=== PATIENT | female | born 1985 | race African-American/Black ===

== ENCOUNTER 2016-10-20 21:11 | Emergency (ER) | payer MEDICAID ==
[~2016-10-20] VITALS: Ht 170.2 cm; Wt 70.0 kg
[~2016-10-20 21:11] MED LIST: AMOX500C PO
[2016-10-20 21:13] VITALS: BP 121/60; PULSE 86; RESP 18; TEMP 98.1; O2SAT 100
--- NOTE | 2016-10-20 22:34 | PD ---
Physical Exam Date Seen by Provider: Oct 20, 2016 Time Seen by Provider: 22:30 Narrative 31 YOBF C/O N/V/D THIS AM. UNABLE TO KEEP ANYTHING DOWN. DIFFUSE ABD CRAMPING. LMP 1WK. NO F/C, NO COUGH,SOB, OR CP VSS. AWAITING BED PLACEMENT Data Data Last Documented VS Vital Signs Date Time Temp Pulse Resp B/P Pulse Ox O2 Delivery O2 Flow Rate FiO2 10/20/16 21:13 98.1 86 18 121/60 100 Room Air [facility] Medical Record Reviewed: Yes Supervised Visit with JANKI: Yes Rd Maria Oct 20, 2016 22:34
[2016-10-20 23:11] VITALS: RESP 16; O2SAT 98
[2016-10-20] MEDS ORDERED: SODIUM CHLOR 0.9% 1000 ML INJ 1,000 ML IV ONE (23:15)
[2016-10-20] MEDS ORDERED: ONDANSETRON HCL 4 MG/2 ML VIAL IV ONE (23:15)
[2016-10-20 23:35] LABS: AUTOMATED NEUTROPHIL # 6.2 TH/MM3 (1.8-7.7); BASOPHIL % 0.3 % (0.0-2.0); HEMATOCRIT 38.2 % (35.0-46.0); HEMO FLAGS DIFF FINAL; LYMPH % 13.2 % (9.0-44.0); MEAN CELL VOLUME 87.9 FL (80.0-100.0); MEAN CORPUSCULAR HEMOGLOBIN 29.4 PG (27.0-34.0); MEAN CORPUSCULAR HGB CONC 33.5 % (32.0-36.0); NEUT % 80.5 % (16.0-70.0); PLATELET COUNT 258 TH/MM3 (150-450); RED BLOOD COUNT 4.35 MIL/MM3 (4.00-5.30); RED CELL DISTRIBUTION WIDTH 12.5 % (11.6-17.2); WHITE BLOOD COUNT 7.7 TH/MM3 (4.0-11.0)
[2016-10-20] MEDS ORDERED: ZOFR4TAB3 SL (23:35)
[2016-10-20 23:36] LABS: BACTERIA, URINE RARE /hpf; BLOOD, URINE NEG (NEG); COMMENT (UR) CULT NOT INDICATED; CULTURE IF INDICATED CULT NOT INDICATED; GLUCOSE,URINE NEG (NEG); KETONE, URINE NEG (NEG); MUCUS URINE MANY /lpf (OCC); NITRITE,URINE NEG (NEG); PH, URINE 6.5 (5.0-8.5); SQUAMOUS EPITHELIAL CELL URINE 6 /hpf (0-5); URINE COLOR YELLOW (YELLW/STRAW)
--- NOTE | 2016-10-20 23:36 | PD ---
HPI Chief Complaint: GI Complaint Time Seen by Provider: 23:05 Travel History International Travel<30 days: No Contact w/Intl Traveler<30days: No Traveled to known affect area: No History of Present Illness HPI The patient is a 31 year old female who presents to the [facility] emergency department with a history of nausea, vomiting, and diarrhea that began this morning. She reports that she has not been able to keep any liquids down including water. She reports that she's had vomiting too many times to count. She reports having diarrhea approximately 5 times today. She reports that the stool is green to brown in color. She denies having any mucus or blood in her stool. She denies any foreign travel, sick contacts, recent antibiotic use, or camping. She reports having a generalized abdominal cramping prior to having the diarrhea. Otherwise no other focal abdominal pain. The patient denies any recent fevers, cough, congestion, neck pain, chest pain, shortness of breath, urinary symptoms, or neurologic symptoms. LMP: Sometime last month PFSH Past Medical History Narrative Medical The patient's past medical history is reportedly none. Diminished Hearing: No Immunizations Current: Yes Migraines: Yes Influenza Vaccination: No ?: Not LMP: LAST THURSDAY ENDED : 5 Para: 5 Miscarriage: 0 : 0 Past Surgical History Narrative Surgical The patient's past surgical history is reportedly none. Other Surgery: Yes (FACIAL) Social History Alcohol Use: No Tobacco Use: No Substance Use: No (MARIJUANA) Allergies-Medications (Allergen,Severity, Reaction): Coded Allergies: No Known Allergies (Verified , 10/20/16) Reported Meds & Prescriptions Reported Meds & Active Scripts Active Zofran Odt (Ondansetron Odt) 4 Mg Tab 4 Mg SL Q6HR PRN Review of Systems Except as stated in HPI: all other systems reviewed are Neg General / Constitutional: No: Fever Eyes: No: Visual changes HENT: No: Headaches Cardiovascular: No: Chest Pain or Discomfort Respiratory: No: Shortness of Breath Gastrointestinal: Positive: Nausea, Vomiting, Diarrhea, Abdominal Pain, Changes in Bowel Habits, No: Hematochezia, Constipation, Indigestion, Loss of Appetite Genitourinary: No: Dysuria Musculoskeletal: No: Pain Skin: No Rash Neurologic: No: Weakness Psychiatric: No: Depression Endocrine: No: Polydipsia Hematologic/Lymphatic: No: Easy Bruising Physical Exam Narrative General: The patient is a well-developed well-nourished female in no acute distress. Head and Neck exam: Head is normocephalic atraumatic. Eyes: EOMI, pupils are equal round and reactive to light. Nose: Midline septum with pink mucous membranes Mouth: Dentition unremarkable. Moist mucus membranes. Posterior oropharynx is not erythematous. No tonsillar hypertrophy. Uvula midline. Airway patent. Neck: No palpable lymphadenopathy. No nuchal rigidity. No thyromegaly. Cardiovascular: Regular rate and rhythm without murmurs, gallops, or rubs. Lungs: Clear to auscultation bilaterally. No wheezes, rhonchi, or rales. Abdomen: Soft, without tenderness to palpation in all 4 quadrants of the abdomen. No guarding, rebound, or rigidity. Normal bowel sounds are audible. No tenderness on palpation of McBurney's point. Negative Mann's sign. Extremities: No clubbing, cyanosis, or edema. 2+ pulses in all 4 extremities. No calf tenderness on palpation. Back: No spinous process tenderness to palpation. No costovertebral angle tenderness to palpation. Neurologic Exam: Grossly nonfocal. Skin Exam: No rash noted. Intact skin that is warm and dry. Data Data Last Documented VS Vital Signs Date Time Temp Pulse Resp B/P Pulse Ox O2 Delivery O2 Flow Rate FiO2 10/20/16 23:11 16 98 Room Air 10/20/16 21:13 98.1 86 121/60 Orders Complete Blood Count With Diff (10/20/16 23:06) Comprehensive Metabolic Panel (10/20/16 23:06) C-Reactive Protein (Crp) (10/20/16 23:06) Lipase (10/20/16 23:06) Urinalysis - C+S If Indicated (10/20/16 23:06) Magnesium (Mg) (10/20/16 23:06) Iv Access Insert/Monitor (10/20/16 23:06) Ecg Monitoring (10/20/16 23:06) Oximetry (10/20/16 23:06) Ed Urine Pregnancytest Poc (10/20/16 23:06) Sodium Chlor 0.9% 1000 Ml Inj (Ns 1000 M (10/20/16 23:15) Ondansetron Inj (Zofran Inj) (10/20/16 23:15) Oral Rehydration (10/21/16 01:39) Labs Laboratory Tests Test 10/20/16 23:20 White Blood Count 7.7 TH/MM3 Red Blood Count 4.35 MIL/MM3 Hemoglobin 12.8 GM/DL Hematocrit 38.2 % Mean Corpuscular Volume 87.9 FL Mean Corpuscular Hemoglobin 29.4 PG Mean Corpuscular Hemoglobin 33.5 % Concent Red Cell Distribution Width 12.5 % Platelet Count 258 TH/MM3 Mean Platelet Volume 8.0 FL Neutrophils (%) (Auto) 80.5 % Lymphocytes (%) (Auto) 13.2 % Monocytes (%) (Auto) 6.0 % Eosinophils (%) (Auto) 0.0 % Basophils (%) (Auto) 0.3 % Neutrophils # (Auto) 6.2 TH/MM3 Lymphocytes # (Auto) 1.0 TH/MM3 Monocytes # (Auto) 0.5 TH/MM3 Eosinophils # (Auto) 0.0 TH/MM3 Basophils # (Auto) 0.0 TH/MM3 CBC Comment DIFF FINAL Differential Comment Urine Color YELLOW Urine Turbidity HAZY Urine pH 6.5 Urine Specific [place] 1.035 Urine Protein 30 mg/dL Urine Glucose (UA) NEG mg/dL Urine Ketones NEG mg/dL Urine Occult Blood NEG Urine Nitrite NEG Urine Bilirubin NEG Urine Urobilinogen 2.0 MG/DL Urine Leukocyte Esterase TRACE Urine RBC 3 /hpf Urine WBC 4 /hpf Urine Squamous Epithelial 6 /hpf Cells Urine Bacteria RARE /hpf Urine Mucus MANY /lpf Microscopic Urinalysis Comment CULT NOT INDICATED Sodium Level 139 MEQ/L Potassium Level 3.4 MEQ/L Chloride Level 103 MEQ/L Carbon Dioxide Level 27.2 MEQ/L Anion Gap 9 MEQ/L Blood Urea Nitrogen 11 MG/DL Creatinine 1.04 MG/DL Estimat Glomerular Filtration 76 ML/MIN Rate Random Glucose 113 MG/DL Calcium Level 8.7 MG/DL Magnesium Level 2.0 MG/DL Total Bilirubin 0.8 MG/DL Aspartate Amino Transf 24 U/L (AST/SGOT) Alanine Aminotransferase 32 U/L (ALT/SGPT) Alkaline Phosphatase 104 U/L C-Reactive Protein 0.74 MG/DL Total Protein 8.0 GM/DL Albumin 4.0 GM/DL Lipase 88 U/L [facility] Medical Decision Making Medical Screen Exam Complete: Yes Emergency Medical Condition: Yes Medical Record Reviewed: Yes Differential Diagnosis Viral versus bacterial gastroenteritis, versus electrolyte derangement, versus dehydration Narrative Course During the course of the patients emergency department visit, the patients history, examination, and differential diagnosis were reviewed with the patient. The patient had IV access obtained and blood work sent for analysis. The patient was placed on a cardiac/vascular sonographer with oximetry and blood pressure monitoring. The patient was provided normal saline 1 L IV fluid bolus, Zofran 4 mg IV. The patients laboratory studies were reviewed and remarkable for a CBC that shows a white count of 7.7, hemoglobin 12.8, platelets 258 with neutrophils 80.5 , CMP is remarkable for a potassium of 3.4 which was supplemented orally, creatinine 1.04, glucose 113, C-reactive protein 0.74, lipase 88, urinalysis unremarkable. The patient was started on oral rehydration therapy. The patient was given potassium chloride 20 mEq by mouth 1. The patient will be discharged home with a prescription for Zofran for suspected viral gastroenteritis. The patient is resting comfortably and feels better, is alert and in no distress. The patients results and examination findings were discussed with the patient. The repeat examination is unremarkable and benign. The history, exam, diagnostic testing, and current condition do not suggest any significant pathology to warrant further testing, continued ED treatment, admission, or surgical evaluation at this point. The vital signs have been stable. The patient does not have uncontrollable pain, intractable vomiting, or other significant symptoms. The patient's condition is stable and appropriate for discharge. The patient will pursue further outpatient evaluation with a primary care physician or other designated or consulting physician as indicated in the discharge instructions. The patient expressed understanding and was agreeable with this plan. Diagnosis Primary Impression: Nausea, vomiting, and diarrhea Referrals: Primary Care Physician 3 days Patient Instructions: Acute Diarrhea (ED), Acute Nausea and Vomiting (ED), General Instructions Med/Other Pt SpecificInfo: Prescription(s) given Scripts Ondansetron Odt (Zofran Odt)4 Mg Tab4 Mg SL Q6HR PRN (Nausea/Vomiting) #7 TAB Ref 0 Prov:Diana Venegas MD 10/20/16 Disposition: 01 DISCHARGE HOME Condition: Stable Diana Venegas MD Oct 20, 2016 23:36
[2016-10-20 23:45] LABS: ANION GAP 9 MEQ/L (5-15); AST (GOT) 24 U/L (15-37); BICARBONATE 27.2 MEQ/L (21.0-32.0); BLOOD UREA NITROGEN 11 MG/DL (7-18); CHLORIDE 103 MEQ/L (98-107); GLOMERULAR FILTRATION RATE 76 ML/MIN (>89); POTASSIUM 3.4 MEQ/L (3.5-5.1); SODIUM (NA) 139 MEQ/L (136-145)
[2016-10-20 23:48] LABS: ALKALINE PHOSPHATASE 104 U/L (45-117); ALT (GPT) 32 U/L (10-53); TOTAL BILIRUBIN ADULT 0.8 MG/DL (0.2-1.0)
[2016-10-21] MEDS ORDERED: POTASSIUM CHLORIDE 20 MEQ CONTROLLED RELEASE TAB PO ONE (01:45)
== END 2016-10-21 02:28 | disposition home or self-care (01) ==
LOC: NEPC 21:11
DX: R11.2 Nausea with vomiting, unspecified (principal); R19.7 Diarrhea, unspecified; R10.84 Generalized abdominal pain
CPT/HCPCS: 80053; 81001; 83690; 83735; 84703; 85025; 86140; 96361; 96374; 99284; J2405; J7030

== ENCOUNTER 2017-02-05 10:57 | Emergency (ER) | payer MEDICAID ==
[~2017-02-05 10:57] MED LIST changes: -AMOX500C PO; +ZOFR4TAB3 SL
[2017-02-05 10:58] VITALS: BP 120/73; PULSE 94; RESP 20; TEMP 98.4; O2SAT 95
--- NOTE | 2017-02-05 11:06 | PD ---
Physical Exam Time Seen by Provider: 11:04 Narrative 31 y/o female here with n/v, sore throat, congestion and sore breasts for 2 days. Vital signs reviewed. Seen at triage desk. Awaiting bed placement. Data Data Last Documented VS Vital Signs Date Time Temp Pulse Resp B/P Pulse Ox O2 Delivery O2 Flow Rate FiO2 02/05/17 10:58 98.4 94 20 120/73 95 Room Air [facility] Medical Record Reviewed: Yes Supervised Visit with JANKI: Scot Richardson Feb 05, 2017 11:06
[2017-02-05] MEDS ORDERED: SODIUM CHLOR 0.9% 1000 ML INJ 1,000 ML IV ONE (11:30)
[2017-02-05] MEDS ORDERED: ONDANSETRON HCL 4 MG/2 ML VIAL IV PUSH ONE (11:30)
--- NOTE | 2017-02-05 11:30 | PD ---
HPI Chief Complaint: GI Complaint Time Seen by Provider: 11:27 Travel History International Travel<30 days: No Contact w/Intl Traveler<30days: No Traveled to known affect area: No History of Present Illness HPI 31-year-old female presents to the emergency department for evaluation congestion, sore throat, vomiting, sore breast that started yesterday. Patient states the last time she had her sore breast, she was . Patient states she had a light menstrual cycle 2 weeks ago. Patient denies any fevers. She states she has had some chills. No chest pain or shortness breath. She denies any abdominal pain. No diarrhea. She denies any urinary symptoms. She has no chronic medical problems and takes no prescribed medications. Patient states that she has been continuously vomiting. She has kept some small amounts of laurence jacek down. Patient denies any other complaints at this time. PFSH Past Medical History Diminished Hearing: No Immunizations Current: Yes Migraines: Yes ?: Unknown : 5 Para: 5 Miscarriage: 0 : 0 Past Surgical History Other Surgery: Yes (FACIAL) Social History Alcohol Use: No Tobacco Use: No Substance Use: No (MARIJUANA IN PAST) Allergies-Medications (Allergen,Severity, Reaction): Coded Allergies: No Known Allergies (Verified , 02/05/17) Reported Meds & Prescriptions Reported Meds & Active Scripts Active No Active Prescriptions or Reported Medications Review of Systems Except as stated in HPI: all other systems reviewed are Neg Physical Exam Narrative GENERAL: Well-nourished, well-developed female patient, afebrile. SKIN: Focused skin assessment warm/dry. HEAD: Normocephalic. Atraumatic. ENT: Mucosa pink and moist. No erythema or exudates. No uvular edema. No uvular , palatal, or tonsillar deviation. Airway patent. Nasal turbinates appear normal without nasal blood, purulent drainage or septal hematoma. Bilateral tympanic membranes are clear without erythema or perforation. EYES: No scleral icterus. No injection or drainage. NECK: Supple, trachea midline. No JVD or lymphadenopathy. CARDIOVASCULAR: Regular rate and rhythm without murmurs, gallops, or rubs. RESPIRATORY: Breath sounds equal bilaterally. No accessory muscle use. Lungs sounds are clear to auscultation. GASTROINTESTINAL: Abdomen soft, non-tender, nondistended. MUSCULOSKELETAL: No cyanosis, or edema. BACK: Nontender without obvious deformity. No CVA tenderness. Data Data Last Documented VS Vital Signs Date Time Temp Pulse Resp B/P Pulse Ox O2 Delivery O2 Flow Rate FiO2 02/05/17 10:58 98.4 94 20 120/73 95 Room Air Orders Iv Access Insert/Monitor (02/05/17 11:26) Complete Blood Count With Diff (02/05/17 11:26) Basic Metabolic Panel (Bmp) (02/05/17 11:26) Group A Rapid Strep Screen (02/05/17 11:26) Urinalysis - C+S If Indicated (02/05/17 11:26) Ed Urine Pregnancytest Poc (02/05/17 11:26) Sodium Chlor 0.9% 1000 Ml Inj (Ns 1000 M (02/05/17 11:30) Ondansetron Inj (Zofran Inj) (02/05/17 11:30) Strep Culture (Group A) (02/05/17 11:30) Urine Culture (02/05/17 12:35) Labs Laboratory Tests Test 02/05/17 02/05/17 11:20 12:35 White Blood Count 6.6 TH/MM3 Red Blood Count 4.33 MIL/MM3 Hemoglobin 12.9 GM/DL Hematocrit 38.1 % Mean Corpuscular Volume 87.9 FL Mean Corpuscular Hemoglobin 29.7 PG Mean Corpuscular Hemoglobin 33.8 % Concent Red Cell Distribution Width 13.0 % Platelet Count 247 TH/MM3 Mean Platelet Volume 8.4 FL Neutrophils (%) (Auto) 71.9 % Lymphocytes (%) (Auto) 16.1 % Monocytes (%) (Auto) 11.1 % Eosinophils (%) (Auto) 0.4 % Basophils (%) (Auto) 0.5 % Neutrophils # (Auto) 4.7 TH/MM3 Lymphocytes # (Auto) 1.1 TH/MM3 Monocytes # (Auto) 0.7 TH/MM3 Eosinophils # (Auto) 0.0 TH/MM3 Basophils # (Auto) 0.0 TH/MM3 CBC Comment DIFF FINAL Differential Comment Sodium Level 136 MEQ/L Potassium Level 3.4 MEQ/L Chloride Level 101 MEQ/L Carbon Dioxide Level 26.1 MEQ/L Anion Gap 9 MEQ/L Blood Urea Nitrogen 11 MG/DL Creatinine 0.96 MG/DL Estimat Glomerular Filtration 83 ML/MIN Rate Random Glucose 88 MG/DL Calcium Level 9.5 MG/DL Urine Color YELLOW Urine Turbidity HAZY Urine pH 6.0 Urine Specific [place] 1.018 Urine Protein TRACE mg/dL Urine Glucose (UA) NEG mg/dL Urine Ketones NEG mg/dL Urine Occult Blood NEG Urine Nitrite NEG Urine Bilirubin NEG Urine Urobilinogen 2.0 MG/DL Urine Leukocyte Esterase LARGE Urine RBC LESS THAN 1 /hpf Urine WBC 24 /hpf Urine Squamous Epithelial 19 /hpf Cells Urine Amorphous Sediment FEW Urine Bacteria FEW /hpf Urine Mucus FEW /lpf Microscopic Urinalysis Comment CULTURE INDICATED MDM Medical Decision Making Medical Screen Exam Complete: Yes Emergency Medical Condition: Yes Medical Record Reviewed: Yes Differential Diagnosis Viral illness versus UTI versus strep pharyngitis versus Narrative Course 31-year-old female presents to the emergency department for evaluation of congestion, sore throat, vomiting, sore breath started yesterday. Patient does appear well on exam. CBC, BMP, UA, urine test, strep swab are ordered and pending. Patient is given normal saline 1 L IV bolus, Zofran 4 mg IV. CBC shows no acute abnormality. BMP shows no acute abnormality. UA shows large leukocyte esterase, 24 WBC. UPT is negative. Strep is negative. Patient will be discharged a prescription for Zofran for nausea/vomiting and Macrobid for UTI. Patient is encouraged to follow-up with her primary care physician. She is to return for any acute worsening of symptoms. Patient verbalizes agreement and understanding. The patient was discharged in stable condition with instructions, including return instructions and follow up instructions. Diagnosis Primary Impression: Viral illness Additional Impression: Urinary tract infection Qualified Code: N30.00 - Acute cystitis without hematuria Referrals: Primary Care Physician call for appointment Patient Instructions: General Instructions, Urinary Tract Infection in Women ( ED), Viral Syndrome (ED) Departure Forms: Tests/Procedures, Work Release Enter return to work date: Feb 08, 2017 Additional Instructions: Take Zofran as instructed as needed for nausea/vomiting. Take Macrobid as directed until gone for UTI. Follow-up with your primary care physician. Return to the emergency department for any acute worsening of symptoms. Med/Other Pt SpecificInfo: Prescription(s) given Scripts Ondansetron Odt 4 Mg Tab4 Mg SL Q6HR PRN (Nausea/Vomiting) #16 TAB Ref 0 Prov:Flora Graves 02/05/17 Nitrofurantoin Monohydrate Macrocrystals (Macrobid)100 Mg [id number] Mg PO BID 7 Days Ref 0 Prov:Flora Graves 02/05/17 Disposition: 01 DISCHARGE HOME Condition: Stable Flora Graves Feb 05, 2017 11:30
[2017-02-05 12:06] LABS: AUTOMATED NEUTROPHIL # 4.7 TH/MM3 (1.8-7.7); BASOPHIL % 0.5 % (0.0-2.0); EOSINOPHIL % 0.4 % (0.0-4.0); HEMATOCRIT 38.1 % (35.0-46.0); HEMO FLAGS DIFF FINAL; LYMPH % 16.1 % (9.0-44.0); LYMPHOCYTE # 1.1 TH/MM3 (1.0-4.8); MEAN CELL VOLUME 87.9 FL (80.0-100.0); MEAN CORPUSCULAR HEMOGLOBIN 29.7 PG (27.0-34.0); MEAN CORPUSCULAR HGB CONC 33.8 % (32.0-36.0); MONO % 11.1 % (0.0-8.0); NEUT % 71.9 % (16.0-70.0); PLATELET COUNT 247 TH/MM3 (150-450); RED BLOOD COUNT 4.33 MIL/MM3 (4.00-5.30); WHITE BLOOD COUNT 6.6 TH/MM3 (4.0-11.0)
[2017-02-05 12:29] LABS: BICARBONATE 26.1 MEQ/L (21.0-32.0); POTASSIUM 3.4 MEQ/L (3.5-5.1)
[2017-02-05 12:58] LABS: BACTERIA, URINE FEW /hpf; BLOOD, URINE NEG (NEG); COMMENT (UR) CULTURE INDICATED; CULTURE IF INDICATED CULTURE INDICATED; GLUCOSE,URINE NEG (NEG); KETONE, URINE NEG (NEG); MUCUS URINE FEW /lpf (OCC); NITRITE,URINE NEG (NEG); SQUAMOUS EPITHELIAL CELL URINE 19 /hpf (0-5); URINE COLOR YELLOW (YELLW/STRAW)
[2017-02-05] MEDS ORDERED: ONDA4TAB7 SL (13:08)
[2017-02-05] MEDS ORDERED: MACR100C2 PO (13:08)
== END 2017-02-05 13:36 | disposition home or self-care (01) ==
LOC: NEPD 10:57
DX: B34.9 Viral infection, unspecified (principal); N30.00 Acute cystitis without hematuria; B96.89 Other specified bacterial agents as the cause of diseases classified elsewhere
CPT/HCPCS: 80048; 81001; 84703; 85025; 87081; 87086; 87880; 96361; 96374; 99284; J2405; J7030

== ENCOUNTER 2017-04-08 19:01 | Emergency (ER) | payer MEDICAID ==
[~2017-04-08] VITALS: Ht 165.1 cm; Wt 68.0 kg
[~2017-04-08 19:01] MED LIST changes: +MACR100C2 PO; +ONDA4TAB7 SL; -ZOFR4TAB3 SL
[2017-04-08 19:02] VITALS: BP 133/78; PULSE 111; RESP 15; TEMP 98.4; O2SAT 99
[2017-04-08] MEDS ORDERED: SODIUM CHLOR 0.9% 1000 ML INJ 1,000 ML IV SCH (22:12)
[2017-04-08] MEDS ORDERED: SODIUM CHLORIDE 0.9% FLUSH 10 ML FLUSH IV FLUSH PRN (22:15)
[2017-04-08] MEDS ORDERED: KETOROLAC TROMETHAMINE 30 MG/ML (IVP) VIAL IVP ONE (22:15)
--- NOTE | 2017-04-08 22:17 | PD ---
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 She states the pain is been fairly intense nonradiating associated with mild nausea without vomiting. She states it hurts when she PEs and has bowel movement. No blood in the stool. Symptoms for the past few days and gradually worsening. States she's not had this in the past. PFSH Past Medical History Diminished Hearing: No Immunizations Current: Yes Migraines: Yes ?: Unknown LMP: LAST MTH : 5 Para: 5 Miscarriage: 0 : 0 Past Surgical History Other Surgery: Yes (FACIAL) Social History Alcohol Use: No Tobacco Use: No Substance Use: No (MARIJUANA IN PAST) Allergies-Medications (Allergen,Severity, Reaction): Coded Allergies: No Known Allergies (Verified , 04/08/17) Reported Meds & Prescriptions Reported Meds & Active Scripts Active Lortab (Hydrocodone-Acetaminophen) 5-325 Mg Tab 1 Tab PO Q6H PRN Ibuprofen 800 Mg Tab 800 Mg PO Q8H PRN Review of Systems Except as stated in HPI: all other systems reviewed are Neg Physical Exam Narrative GENERAL: Well-developed well-nourished appears to be in mild discomfort. SKIN: Focused skin assessment warm/dry. HEAD: Atraumatic. Normocephalic. EYES: Pupils equal and round. No scleral icterus. No injection or drainage. ENT: No nasal bleeding or discharge. Mucous membranes pink and moist. NECK: Trachea midline. No JVD. CARDIOVASCULAR: Regular rate and rhythm. No murmur appreciated. RESPIRATORY: No accessory muscle use. Clear to auscultation. Breath sounds equal bilaterally. GASTROINTESTINAL: Abdomen soft, non-tender, nondistended. Hepatic and splenic margins not palpable. GENITOURINARY: Exam performed with female nurse field associate present at all times, grossly normal external female genitalia, no cervical motion tenderness, there is no bimanual tenderness in the midline, no lesion or discharge no bleeding. MUSCULOSKELETAL: No obvious deformities. No clubbing. No cyanosis. No edema. NEUROLOGICAL: Awake and alert. No obvious cranial nerve deficits. Motor grossly within normal limits. Normal speech. PSYCHIATRIC: Appropriate mood and affect; insight and judgment normal. Data Data Last Documented VS Vital Signs Date Time Temp Pulse Resp B/P (MAP) Pulse Ox O2 Delivery O2 Flow Rate FiO2 04/09/17 03:22 04/08/17 22:49 97 Room Air 04/08/17 21:20 18 04/08/17 19:02 98.4 111 Orders Orders Complete Blood Count With Diff (04/08/17 22:12) Comprehensive Metabolic Panel (04/08/17 22:12) Urinalysis - C+S If Indicated (04/08/17 22:12) Iv Access Insert/Monitor (04/08/17 22:12) Ecg Monitoring (04/08/17 22:12) Oximetry (04/08/17 22:12) Sodium Chlor 0.9% 1000 Ml Inj (Ns 1000 M (04/08/17 22:12) Sodium Chloride 0.9% Flush (Ns Flush) (04/08/17 22:15) Ketorolac Inj (Toradol Inj) (04/08/17 22:15) Ed Urine Pregnancytest Poc (04/08/17 22:12) Wet Prep Profile (04/08/17 22:40) Gc And Chlamydia Pcr (04/08/17 22:40) Acetamin-Hydrocod 325-5 Mg (Abbot 5-325 (04/09/17 01:15) Us Pelvis Comp W Doppler (04/08/17 23:38) Labs Laboratory Tests Test 04/08/17 22:18 04/08/17 23:25 White Blood Count 10.3 TH/MM3 Red Blood Count 4.31 MIL/MM3 Hemoglobin 12.4 GM/DL Hematocrit 39.0 % Mean Corpuscular Volume 90.5 FL Mean Corpuscular Hemoglobin 28.7 PG Mean Corpuscular Hemoglobin Concent 31.7 % Red Cell Distribution Width 13.2 % Platelet Count 249 TH/MM3 Mean Platelet Volume 8.3 FL Neutrophils (%) (Auto) 67.8 % Lymphocytes (%) (Auto) 25.1 % Monocytes (%) (Auto) 6.2 % Eosinophils (%) (Auto) 0.5 % Basophils (%) (Auto) 0.4 % Neutrophils # (Auto) 7.0 TH/MM3 Lymphocytes # (Auto) 2.6 TH/MM3 Monocytes # (Auto) 0.6 TH/MM3 Eosinophils # (Auto) 0.0 TH/MM3 Basophils # (Auto) 0.0 TH/MM3 CBC Comment DIFF FINAL Differential Comment Urine Color YELLOW Urine Turbidity CLEAR Urine pH 6.5 Urine Specific [place] 1.023 Urine Protein NEG mg/dL Urine Glucose (UA) NEG mg/dL Urine Ketones NEG mg/dL Urine Occult Blood NEG Urine Nitrite NEG Urine Bilirubin NEG Urine Urobilinogen 2.0 MG/DL Urine Leukocyte Esterase TRACE Urine RBC 1 /hpf Urine WBC 3 /hpf Urine Squamous Epithelial Cells 1 /hpf Microscopic Urinalysis Comment CULT NOT INDICATED Blood Urea Nitrogen 11 MG/DL Creatinine 0.95 MG/DL Random Glucose 76 MG/DL Total Protein 8.2 GM/DL Albumin 4.1 GM/DL Calcium Level 8.9 MG/DL Alkaline Phosphatase 92 U/L Aspartate Amino Transf (AST/SGOT) 19 U/L Alanine Aminotransferase (ALT/SGPT) 23 U/L Total Bilirubin 0.6 MG/DL Sodium Level 138 MEQ/L Potassium Level 3.8 MEQ/L Chloride Level 106 MEQ/L Carbon Dioxide Level 25.6 MEQ/L Anion Gap 6 MEQ/L Estimat Glomerular Filtration Rate 84 ML/MIN Clue Cells (Wet Prep) NONE SEEN Vaginal Trichomonas (Wet Prep) NONE SEEN Vaginal Yeast (Wet Prep) NONE SEEN Chlamydia trachomatis DNA (PCR) NOT DETECTED Neisseria gonorrhoeae DNA (PCR) NOT DETECTED MDM Medical Decision Making Medical Screen Exam Complete: Yes Emergency Medical Condition: Yes Differential Diagnosis , UTI, DVT, CVA, STD, torsion seems possible but unlikely Narrative Course Patient roomed in emergency department, given Toradol for pain, initial workup CBC BMP UA wet prep urine test do not reveal a cause of the patient's pain. Given the amount of tenderness that she's having a bimanual test I have ordered an ultrasound of her pelvis, this was discussed with Bambi Reyes at , she will follow up the ultrasound and disposition the patient appropriately. Diagnosis Primary Impression: Pelvic pain in female Scripts Hydrocodone-Acetaminophen (Lortab) 5-325 Mg Tab 1 TAB PO Q6H Y for PAIN GREATER THAN 5, #6 TAB 0 Refills Prov: Bambi Reyes 04/09/17 Ibuprofen (Ibuprofen) 800 Mg Tab 800 MG PO Q8H Y for PAIN SCALE 1 TO 10, #30 TAB 0 Refills Prov: Bambi Reyes 04/09/17 Condition: Stable Huber Yap MD Apr 08, 2017 22:17
[2017-04-08 22:38] LABS: BLOOD, URINE NEG (NEG); COMMENT (UR) CULT NOT INDICATED; CULTURE IF INDICATED CULT NOT INDICATED; GLUCOSE,URINE NEG (NEG); KETONE, URINE NEG (NEG); NITRITE,URINE NEG (NEG); PH, URINE 6.5 (5.0-8.5); SQUAMOUS EPITHELIAL CELL URINE 1 /hpf (0-5); URINE COLOR YELLOW (YELLW/STRAW)
[2017-04-08 22:40] LABS: BASOPHIL % 0.4 % (0.0-2.0); EOSINOPHIL % 0.5 % (0.0-4.0); HEMO FLAGS DIFF FINAL; LYMPH % 25.1 % (9.0-44.0); LYMPHOCYTE # 2.6 TH/MM3 (1.0-4.8); MEAN CELL VOLUME 90.5 FL (80.0-100.0); MEAN CORPUSCULAR HEMOGLOBIN 28.7 PG (27.0-34.0); MEAN CORPUSCULAR HGB CONC 31.7 % (32.0-36.0); MONO % 6.2 % (0.0-8.0); NEUT % 67.8 % (16.0-70.0); PLATELET COUNT 249 TH/MM3 (150-450); RED BLOOD COUNT 4.31 MIL/MM3 (4.00-5.30); RED CELL DISTRIBUTION WIDTH 13.2 % (11.6-17.2); WHITE BLOOD COUNT 10.3 TH/MM3 (4.0-11.0)
[2017-04-08 22:49] VITALS: O2SAT 97
[2017-04-08 22:59] LABS: ALT (GPT) 23 U/L (10-53); ANION GAP 6 MEQ/L (5-15); AST (GOT) 19 U/L (15-37); BICARBONATE 25.6 MEQ/L (21.0-32.0); BLOOD UREA NITROGEN 11 MG/DL (7-18); CHLORIDE 106 MEQ/L (98-107); GLOMERULAR FILTRATION RATE 84 ML/MIN (>89); POTASSIUM 3.8 MEQ/L (3.5-5.1); SODIUM (NA) 138 MEQ/L (136-145)
[2017-04-08 23:01] LABS: ALKALINE PHOSPHATASE 92 U/L (45-117); TOTAL BILIRUBIN ADULT 0.6 MG/DL (0.2-1.0)
[2017-04-09] MEDS ORDERED: ACETAMINOPHEN/HYDROcodone 325 MG/5 MG TAB PO ONE (01:15)
--- NOTE | 2017-04-09 01:32 | RADRPT ---
EXAM DATE/TIME: 04/09/2017 00:44 [place] COMPARISON: No previous studies available for comparison. INDICATIONS : Pelvic pain. MEDICAL HISTORY : . Migraines. SURGICAL HISTORY : Facial surgery. ENCOUNTER: Subsequent ACUITY: 1 day PAIN SCORE: 3/10 LOCATION: Bilateral pelvis MEASUREMENTS: UTERUS: 9.5 x 6.8 x 4.9 cm ENDOMETRIAL STRIPE: 10 mm RIGHT OVARY: 4.9 x 3.7 x 2.5 cm LEFT OVARY: 3.7 x 2.5 x 1.8 cm FINDINGS: UTERUS: The myometrium has homogeneous echotexture without mass. RIGHT OVARY: Ovary contains no mass or significant cystic lesion.There is a 16mm simple cyst involving the right o vary. LEFT OVARY: Ovary contains no mass or significant cystic lesion. MISCELLANEOUS: Trace amount of free fluid well within physiologic range. CONCLUSION: Normal examination. Bryan Velez Jr., MD on April 09, 2017 at 1:29 Board Certified Radiologist. This report was verified electronically.
[2017-04-09 02:34] LABS: CHLAMYDIA PCR NOT DETECTED (NOT DETECT); NEISSERIA PCR NOT DETECTED (NOT DETECT)
[2017-04-09] MEDS ORDERED: HYDR-3533 PO (02:50)
[2017-04-09] MEDS ORDERED: IBUP800T23 PO (02:50)
--- NOTE | 2017-04-09 02:50 | PD ---
Physical Exam Time Seen by Provider: 02:49 Narrative Please refer to previous providers documentation for details surrounding the patients current visit Data Data Last Documented VS Vital Signs Date Time Temp Pulse Resp B/P (MAP) Pulse Ox O2 Delivery O2 Flow Rate FiO2 04/09/17 03:22 04/08/17 22:49 97 Room Air 04/08/17 21:20 18 04/08/17 19:02 98.4 111 Orders Orders Complete Blood Count With Diff (04/08/17 22:12) Comprehensive Metabolic Panel (04/08/17 22:12) Urinalysis - C+S If Indicated (04/08/17 22:12) Iv Access Insert/Monitor (04/08/17 22:12) Ecg Monitoring (04/08/17 22:12) Oximetry (04/08/17 22:12) Sodium Chlor 0.9% 1000 Ml Inj (Ns 1000 M (04/08/17 22:12) Sodium Chloride 0.9% Flush (Ns Flush) (04/08/17 22:15) Ketorolac Inj (Toradol Inj) (04/08/17 22:15) Ed Urine Pregnancytest Poc (04/08/17 22:12) Wet Prep Profile (04/08/17 22:40) Gc And Chlamydia Pcr (04/08/17 22:40) Acetamin-Hydrocod 325-5 Mg ([place] 5-325 (04/09/17 01:15) Us Pelvis Comp W Doppler (04/08/17 23:38) Labs Laboratory Tests Test 04/08/17 22:18 04/08/17 23:25 White Blood Count 10.3 TH/MM3 Red Blood Count 4.31 MIL/MM3 Hemoglobin 12.4 GM/DL Hematocrit 39.0 % Mean Corpuscular Volume 90.5 FL Mean Corpuscular Hemoglobin 28.7 PG Mean Corpuscular Hemoglobin Concent 31.7 % Red Cell Distribution Width 13.2 % Platelet Count 249 TH/MM3 Mean Platelet Volume 8.3 FL Neutrophils (%) (Auto) 67.8 % Lymphocytes (%) (Auto) 25.1 % Monocytes (%) (Auto) 6.2 % Eosinophils (%) (Auto) 0.5 % Basophils (%) (Auto) 0.4 % Neutrophils # (Auto) 7.0 TH/MM3 Lymphocytes # (Auto) 2.6 TH/MM3 Monocytes # (Auto) 0.6 TH/MM3 Eosinophils # (Auto) 0.0 TH/MM3 Basophils # (Auto) 0.0 TH/MM3 CBC Comment DIFF FINAL Differential Comment Urine Color YELLOW Urine Turbidity CLEAR Urine pH 6.5 Urine Specific [place] 1.023 Urine Protein NEG mg/dL Urine Glucose (UA) NEG mg/dL Urine Ketones NEG mg/dL Urine Occult Blood NEG Urine Nitrite NEG Urine Bilirubin NEG Urine Urobilinogen 2.0 MG/DL Urine Leukocyte Esterase TRACE Urine RBC 1 /hpf Urine WBC 3 /hpf Urine Squamous Epithelial Cells 1 /hpf Microscopic Urinalysis Comment CULT NOT INDICATED Blood Urea Nitrogen 11 MG/DL Creatinine 0.95 MG/DL Random Glucose 76 MG/DL Total Protein 8.2 GM/DL Albumin 4.1 GM/DL Calcium Level 8.9 MG/DL Alkaline Phosphatase 92 U/L Aspartate Amino Transf (AST/SGOT) 19 U/L Alanine Aminotransferase (ALT/SGPT) 23 U/L Total Bilirubin 0.6 MG/DL Sodium Level 138 MEQ/L Potassium Level 3.8 MEQ/L Chloride Level 106 MEQ/L Carbon Dioxide Level 25.6 MEQ/L Anion Gap 6 MEQ/L Estimat Glomerular Filtration Rate 84 ML/MIN Clue Cells (Wet Prep) NONE SEEN Vaginal Trichomonas (Wet Prep) NONE SEEN Vaginal Yeast (Wet Prep) NONE SEEN Chlamydia trachomatis DNA (PCR) NOT DETECTED Neisseria gonorrhoeae DNA (PCR) NOT DETECTED MDM Medical Record Reviewed: Yes Supervised Visit with JANKI: No Narrative Course Pt was signed out to me with pelvic US pending Last Impressions Pelvis Ultrasound 04/08/17 1837 Signed Impressions: Service Date/Time: March 00:44 - CONCLUSION: Normal examination. Bryan Velez Jr., MD Results are discussed with the patient. She will be discharged home to follow up outpatient. She agrees to return immediately with any acute worsening of symptoms Diagnosis Primary Impression: Pelvic pain in female Patient Instructions: General Instructions, Pelvic Pain in Women (ED) Departure Forms: Tests/Procedures Med/Other Pt SpecificInfo: Prescription(s) given Scripts Hydrocodone-Acetaminophen (Lortab) 5-325 Mg Tab 1 TAB PO Q6H Y for PAIN GREATER THAN 5, #6 TAB 0 Refills Prov: Bambi Reyes 04/09/17 Ibuprofen (Ibuprofen) 800 Mg Tab 800 MG PO Q8H Y for PAIN SCALE 1 TO 10, #30 TAB 0 Refills Prov: Bambi Reyes 04/09/17 Disposition: 01 DISCHARGE HOME Condition: Stable Bambi Reyes Apr 09, 2017 02:50
== END 2017-04-09 03:22 | disposition home or self-care (01) ==
LOC: NEPD 19:01
DX: R10.2 Pelvic and perineal pain (principal)
CPT/HCPCS: 76856; 80053; 81001; 84703; 85025; 87210; 87491; 87591; 93975; 96374; 99285; J1885; J7030